=== PATIENT | female | born 1995 | race African-American/Black ===

== ENCOUNTER 2022-08-01 13:02 | Observation (INO) ==
[2022-08-01] MEDS ORDERED: HYDROmorphone 1 MG/1 ML SYRINGE IV STA ×2 (14:42→15:29)
[2022-08-01] MEDS ORDERED: ONDANSETRON 4 MG/2 ML VIAL IV STA (14:42)
[2022-08-01 14:56] LABS: Basophils # 0.1 10*3/uL (0.0-0.2); Basophils % 0.5 % (0.0-0.8); Eosinophils # 0.1 10*3/uL (0.0-0.87); Eosinophils % 0.6 % (0.00-10.9); Hematocrit 45.9 VOL% (35.7-47.0); Hemoglobin 15.6 GM/DL (12.0-16.0); Immature Granulocytes % 0.6 %; Immature Granulocytes Absolute 0.09 #; Lymphocytes # 2.8 10*3/uL (1.4-4.0); Lymphocytes % 18.9 % (21.3-54.2); Mean Corpuscular Volume 79.7 FL (87-102); Mean Platelet Volume 9.4 FL (9.6-12.0); Monocytes # 0.9 10*3/uL (0.11-0.8); Monocytes % 6.3 % (1.7-12.7); Neutrophils % 73.1 % (38.7-73.9); Platelet Count 378 T/CUMM (130-400); Red Blood Count 5.76 MC/CUMM (3.8-5.5); Red Cell Distribution Width 14.2 % (9.3-17.3)
[2022-08-01] MEDS ORDERED: ONDANSETRON 4 MG/2 ML VIAL ONE (16:28)
[2022-08-01] MEDS ORDERED: ROCURONIUM 50 MG/5 ML VIAL IV ONE (16:28)
[2022-08-01] MEDS ORDERED: fentaNYL 100 MCG/2 ML VIAL ONE ×2 (16:28→18:37)
[2022-08-01] MEDS ORDERED: propofoL 200 MG/20 ML VIAL IV ONE (16:28)
[2022-08-01] MEDS ORDERED: SUCCINYLCHOLINE 200 MG/10 ML VIAL ONE (16:28)
[2022-08-01] MEDS ORDERED: LIDOCAINE 2% 5 ML VIAL ONE (16:28)
[2022-08-01] MEDS ORDERED: DEXAMETHASONE 4 MG/1 ML VIAL ONE (16:28)
[2022-08-01] MEDS ORDERED: TISSUE ADHESIVE 1 EACH APPLICATOR TOP ONE (16:41)
[2022-08-01] MEDS ORDERED: LEVOFLOXACIN INJ 500 MG/100 ML PREMIX IV ONE ×2 (17:00→17:15)
[2022-08-01] MEDS ORDERED: VANCOMYCIN 1,000 MG VIAL ONE (17:15)
[2022-08-01] MEDS ORDERED: METOPROLOL TARTRATE 5 MG/5 ML VIAL IV ONE (17:39)
[2022-08-01] MEDS ORDERED: GLYCOPYRROLATE 0.4 MG/2 ML VIAL ONE (17:39)
[2022-08-01] MEDS ORDERED: SEVOFLURANE 1 UNIT/15 MINUTE INH ONE ×7 (17:40→19:10)
[2022-08-01] MEDS ORDERED: LABETALOL 20 MG/4 ML SYRINGE IV ONE (18:02)
[2022-08-01] MEDS ORDERED: LACTATED RINGERS 1,000 ML IV ONE (18:04)
[2022-08-01] MEDS ORDERED: hydrALAZINE 20 MG/1 ML VIAL ONE (18:25)
[2022-08-01] MEDS ORDERED: KETOROLAC 30 MG/1 ML VIAL ONE (18:37)
[2022-08-01] MEDS ORDERED: LACTATED RINGERS 2,000 ML IV ONE (18:55)
[2022-08-01] MEDS ORDERED: NEOSTIGMINE 10 MG/10 ML VIAL ONE (19:10)
[2022-08-01] MEDS: HYDROmorphone 1 MG/1 ML SYRINGE IV PRN ×2 (19:20→19:25)
[2022-08-01] MEDS ORDERED: MAGNESIUM HYDROXIDE SUSP 30 ML UDCUP PO PRN (19:22)
[2022-08-01] MEDS ORDERED: BISACODYL 10 MG SUPP RECTAL PRN (19:22)
[2022-08-01] MEDS ORDERED: ACETAMINOPHEN 325 MG TABLET PO PRN (19:22)
[2022-08-01] MEDS ORDERED: ONDANSETRON 4 MG/2 ML VIAL IV PRN ×2 (19:22→19:48)
[2022-08-01] MEDS ORDERED: BENZOCAINE/MENTHOL LOZENGE 18/BOX PO PRN (19:22)
[2022-08-01] MEDS ORDERED: IBUPROFEN 800 MG TABLET PO PRN (19:22)
[2022-08-01] MEDS ORDERED: PROMETHAZINE 25 MG/1 ML VIAL IM PRN (19:24)
[2022-08-01] MEDS ORDERED: LACTATED RINGERS 1,000 ML IV SCH (19:30)
[2022-08-01] MEDS: MEPERIDINE 25 MG/1 ML VIAL IV PRN ×2 (19:45→21:55)
[2022-08-01] MEDS: KETOROLAC 30 MG/1 ML VIAL IV SCH (21:03)
[2022-08-01] MEDS ORDERED: hydrALAZINE 20 MG/1 ML VIAL IV PRN (21:39)
[2022-08-01 22:04] LABS: Basophils % 0.2 % (0.0-0.8); Hematocrit 41.1 VOL% (35.7-47.0); Hemoglobin 13.9 GM/DL (12.0-16.0); Immature Granulocytes % 0.4 %; Immature Granulocytes Absolute 0.07 #; Lymphocytes # 1.6 10*3/uL (1.4-4.0); Lymphocytes % 9.2 % (21.3-54.2); Mean Corpuscular HGB Conc 33.8 GM/DL (32-36); Mean Corpuscular Volume 81.5 FL (87-102); Mean Platelet Volume 9.6 FL (9.6-12.0); Monocytes # 0.6 10*3/uL (0.11-0.8); Monocytes % 3.4 % (1.7-12.7); Neutrophils % 86.8 % (38.7-73.9); Platelet Count 317 T/CUMM (130-400); Red Blood Count 5.04 MC/CUMM (3.8-5.5); Red Cell Distribution Width 14.3 % (9.3-17.3)
[2022-08-01 22:15] LABS: Albumin 2.8 G/DL (3.4-5.0); Bilirubin,Total 0.8 MG/DL (0.20-1.00); Calcium 8.5 MG/DL (8.5-10.1); Osmolality,Calculated 279.4 MOS/KG (273-304); Potassium 3.9 MMOL/L (3.5-5.1)
[2022-08-02] MEDS: KETOROLAC 30 MG/1 ML VIAL IV SCH ×3 (03:10→13:04)
[2022-08-02] MEDS ORDERED: oxyCODONE/ACETAMINOPHEN 5-325 MG TABLET PO ONE (06:24)
[2022-08-02 06:56] LABS: Basophils % 0.3 % (0.0-0.8); Eosinophils % 0.1 % (0.00-10.9); Hematocrit 39.4 VOL% (35.7-47.0); Hemoglobin 12.9 GM/DL (12.0-16.0); Immature Granulocytes % 0.4 %; Immature Granulocytes Absolute 0.06 #; Lymphocytes # 2.7 10*3/uL (1.4-4.0); Lymphocytes % 17.9 % (21.3-54.2); Mean Corpuscular HGB Conc 32.7 GM/DL (32-36); Mean Corpuscular Volume 83.8 FL (87-102); Mean Platelet Volume 9.8 FL (9.6-12.0); Monocytes # 1.1 10*3/uL (0.11-0.8); Neutrophils % 74.3 % (38.7-73.9); Platelet Count 329 T/CUMM (130-400); Red Cell Distribution Width 14.4 % (9.3-17.3); White Blood Count 14.9 T/CUMM (4-12)
[2022-08-02 07:08] LABS: Calcium 8.4 MG/DL (8.5-10.1); Osmolality,Calculated 277.4 MOS/KG (273-304); Potassium 4.2 MMOL/L (3.5-5.1)
[2022-08-02] MEDS: DOCUSATE SODIUM 100 MG CAPSULE PO PRN ×2 (07:49→23:04)
[2022-08-02] MEDS ORDERED: MORPHINE 2 MG/1 ML SYRINGE IV PRN (12:41)
[2022-08-02] MEDS: oxyCODONE/ACETAMINOPHEN 5-325 MG TABLET PO PRN ×2 (12:58→21:58)
[2022-08-02] MEDS ORDERED: LEVOFLOXACIN INJ 500 MG/100 ML PREMIX IV ONE (13:23)
[2022-08-02] MEDS ORDERED: ENOXAPARIN 40 MG/0.4 ML SYRINGE SUBCUT SCH (13:30)
[2022-08-02] MEDS ORDERED: LEVOFLOXACIN INJ 750 MG/150 ML PREMIX IV SCH (17:00)
[2022-08-02] MEDS ORDERED: NAPROXEN 500 MG TABLET PO PRN (19:30)
[2022-08-03 07:57] LABS: Basophils % 0.3 % (0.0-0.8); Eosinophils # 0.2 10*3/uL (0.0-0.87); Hematocrit 35.5 VOL% (35.7-47.0); Hemoglobin 11.7 GM/DL (12.0-16.0); Immature Granulocytes % 0.6 %; Immature Granulocytes Absolute 0.05 #; Lymphocytes # 3.3 10*3/uL (1.4-4.0); Lymphocytes % 37.4 % (21.3-54.2); Mean Corpuscular Volume 83.5 FL (87-102); Mean Platelet Volume 9.6 FL (9.6-12.0); Monocytes # 0.6 10*3/uL (0.11-0.8); Monocytes % 7.1 % (1.7-12.7); Neutrophils % 52.6 % (38.7-73.9); Platelet Count 273 T/CUMM (130-400); Red Blood Count 4.25 MC/CUMM (3.8-5.5); Red Cell Distribution Width 14.3 % (9.3-17.3); White Blood Count 8.9 T/CUMM (4-12)
[2022-08-03 08:20] LABS: Calcium 8.5 MG/DL (8.5-10.1)
[2022-08-03 08:36] VITALS: BP 164/95
[2022-08-03] MEDS: oxyCODONE/ACETAMINOPHEN 5-325 MG TABLET PO PRN (11:16)
== END 2022-08-03 11:50 | disposition home or self-care (01) ==
LOC: N.ED 13:02 → N.SDSINP 17:26 → N.OB 17:26 → N.OR 17:26 → N.SDSINP 17:27 → N.OB 20:43
PROVIDERS: ADMIT Obstetrics & Gynecology; ATTEND Obstetrics & Gynecology